=== PATIENT | male | born 1970 | race Caucasian/White ===

== ENCOUNTER 2023-06-03 08:53 | Inpatient (IN) | payer MEDICAID, OTHER ==
[~2023-06-03] VITALS: Ht 175.3 cm; Wt 135.8 kg
[2023-06-03] VITALS (24 sets, daily range): BP systolic 82–111; BP diastolic 45–59; PULSE 94–149; RESP 22–57; TEMP 98.7–101; O2SAT 93
[2023-06-03] MEDS ORDERED: NALOXONE HCL 1 MG/ML 2ML VIAL IV ONE (09:15)
[2023-06-03] MEDS ORDERED: SUCCINYLCHOLINE CHLORIDE 200MG/10ML IV ONE (09:30)
[2023-06-03] MEDS ORDERED: PROPOFOL 10MG/ML 100ML 100 ML IV ONE (09:30)
[2023-06-03] MEDS ORDERED: ETOMIDATE 2MG/ML 10ML VIAL IV ONE (09:30)
[2023-06-03] MEDS ORDERED: IOHEXOL-350 100 ML BOTTLE ONE (09:35)
[2023-06-03 09:57] LABS: HEMATOCRIT. 46.3 % (42.0-52.0); HEMOGLOBIN. 15.4 g/dL (14.0-18.0); MEAN CORPUSCULAR HEMOGLOBIN 30.2 pg (28.0-32.0); MEAN CORPUSCULAR HGB CONC 33.3 g/dL (31.0-37.0); MEAN CORPUSCULAR VOLUME 90.5 fL (80.0-94.0); MEAN PLATELET VOLUME 8.8 fl (7.4-10.4); PLATELET 122 x1000/uL (130-400); RED BLOOD CELL COUNT 5.11 mill/uL (4.7-6.1); RED CELL DISTRIBUTION WIDTH 15.6 % (11.6-14.6)
[2023-06-03 10:07] LABS: DIFFERENTIAL COMMENT 1
[2023-06-03 10:21] LABS: BG BASE EXCESS -5.3 mmol/L (-2.0-2.0); BG CARBOXYHEMOGLOBIN 1.2 % (0.5-1.5); BG DEOXYHEMOGLOBIN 0.8 % (0.0-5.0); BG FRACTION INSPIRED OXYGEN 100; BG HCO3 ACT 18.4 mmol/L (22.0-26.0); BG METHEMOGLOBIN 0.5 % (0.0-1.5); BG OXYGEN SATURATION 99.2 % (92.0-98.5); BG OXYHEMOGLOBIN 97.5 % (94.0-97.0); BG PCO2 31.5 mmHg (35.0-45.0); BG PH 7.385 (7.350-7.450); BG PO2 147.6 mmHg (75.0-100.0); BG SAMPLE SITE RIGHT BRACHIAL; BG TOTAL HEMOGLOBIN 16.1 g/dL (12.0-18.0); BG TOTAL RESPIRATORY RATE 41 b/min; BG VENT MODE VENT - AC
[2023-06-03 10:46] LABS: CHLORIDE 94 mEq/L (98-107); INDEX HEMOLYSI 3 (1-3); INDEX ICTERIC 4 (1-4); INDEX LIPEMIC 1 (1-3); POTASSIUM 4.1 mEq/L (3.5-5.1); SODIUM 134 mEq/L (136-145)
[2023-06-03 10:58] LABS: ALANINE AMINOTRANSFERASE 258 IU/L (13-61); ALBUMIN 3.3 g/dL (3.4-5.0); ASPARTATE AMINOTRANSFERASE 806 IU/L (15-37); BILIRUBIN TOTAL 15.8 mg/dL (0.1-1.0); CALCIUM 8.9 mg/dL (8.5-10.1); CARBON DIOXIDE 20 mEq/L (21-32); ETHANOL BLOOD < 10 mg/dL (<10); GLUCOSE 107 mg/dL (70-105); PROTEIN TOTAL 7.8 g/dL (6.0-8.3); UREA NITROGEN BLOOD 12 mg/dL (7-21)
[2023-06-03 11:00] LABS: CLARITY URINE TURBID (CLEAR); COLOR URINE DARK YELLOW (YELLOW); GLUCOSE URINE NEGATIVE (NEGATIVE); KETONES URINE NEGATIVE (NEGATIVE); LEUKOCYTE ESTERASE URINE 1+ (NEGATIVE); NITRITE URINE POSITIVE (NEGATIVE); OCCULT BLOOD URINE 2+ (NEGATIVE); PH URINE 5.5 (4.5-8.0); PROTEIN URINE 2+ (NEGATIVE); SPECIFIC GRAVITY URINE 1.037 (1.005-1.030)
[2023-06-03 11:09] LABS: INR 2.1; PROTHROMBIN TIME 21.4 sec (9.6-11.0)
[2023-06-03] MEDS ORDERED: LIDOCAINE HCL 1% 10 MG/ML 10ML VIAL ONE (11:09)
[2023-06-03 11:18] LABS: TROPONIN I HIGH SENSITIVITY 592 ng/L (<78)
[2023-06-03 11:29] LABS: BACTERIA URINE 1+; RBC URINE NONE SEEN /hpf (0-2); SQUAMOUS EPITHELIAL CELL URINE FEW /lpf (RARE/1+); YEAST URINE NONE SEEN
[2023-06-03 11:30] LABS: HYALINE CASTS URINE 0-5 /lpf
[2023-06-03 11:57] LABS: PLATELET ESTIMATE SLIGHTLY DECREASED
[2023-06-03] MEDS ORDERED: PIPERACILLIN/TAZ 3.375G PREMIX 50 ML IV ONE (12:15)
[2023-06-03] MEDS ORDERED: VANCOMYCIN 1G PREMIX 200 ML IV ONE (12:15)
[2023-06-03] MEDS ORDERED: SODIUM CHLORIDE 0.9% 1000ML BAG (SEPSIS BOLUS) IV ONE (12:15)
[2023-06-03] MEDS ORDERED: PIPERACILLIN/TAZ 3.375G PREMIX 50 ML IV NR (12:45)
[2023-06-03] MEDS ORDERED: MAGNESIUM/ALUMINUM HYDROXIDE/SIMETHICONE 30ML UDC PO PRN (12:45)
[2023-06-03] MEDS ORDERED: DOCUSATE SODIUM 100MG CAPSULE PO PRN (12:45)
[2023-06-03] MEDS ORDERED: ONDANSETRON HCL 4MG/2ML INJ IV PRN (12:45)
[2023-06-03] MEDS ORDERED: ACETAMINOPHEN 325MG TABLET PO PRN ×2 (12:45)
[2023-06-03] MEDS ORDERED: IPRATROPIUM/ALBUTEROL 0.5-3(2.5)MG/3ML NEB NEB PRN (12:45)
[2023-06-03] MEDS ORDERED: CLONIDINE 0.1MG TABLET PO PRN (12:45)
[2023-06-03] MEDS ORDERED: DEXT 5%/LACTATED RINGERS 1,000 ML IV SCH (12:45)
[2023-06-03] MEDS ORDERED: NITROGLYCERIN 0.4MG TABLET SL SL PRN (12:45)
[2023-06-03] MEDS ORDERED: NOREPINEPHRINE 8 MG in DEXT 5% WATER 242 ML IV PRN (12:45)
[2023-06-03] MEDS ORDERED: GUAIFENESIN 200MG/10ML SUGAR FREE UDC PO PRN (12:45)
[2023-06-03 13:10] LABS: *AMPHETAMINES SCREEN URINE NEGATIVE (NEGATIVE); *BARBITURATES SCREEN URINE NEGATIVE (NEGATIVE); *BENZODIAZEPINES SCREEN URINE NEGATIVE (NEGATIVE); *COCAINE SCREEN URINE NEGATIVE (NEGATIVE); CANNABINOID URINE SCREEN NEGATIVE (NEGATIVE); ECSTASY MDMA SCREEN URINE NEGATIVE (NEGATIVE); OPIATES URINE SCREEN NEGATIVE (NEGATIVE); PHENCYCLIDINE URINE SCREEN NEGATIVE (NEGATIVE)
[2023-06-03] MEDS ORDERED: VANCOMYCIN 2,000 MG in DEXT 5% WATER 500 ML IV NR (14:00)
[2023-06-03] MEDS ORDERED: LACTULOSE 20G/30ML UDC PO SCH (16:00)
[2023-06-03] MEDS: PROPOFOL 10MG/ML 100ML 100 ML IV PRN ×2 (16:01→17:07)
[2023-06-03] MEDS: LORAZEPAM 2MG/ML CPJ IV PRN ×2 (17:23→23:35)
[2023-06-03] MEDS: FENTANYL CITRATE/PF 2,500 MCG in SODIUM CHLORIDE 0.9% 200 ML IV PRN (17:43)
[2023-06-03 18:10] LABS: T4 FREE 0.85 ng/dL (0.76-1.46); THYROID STIMULATING HORMONE 1.1 uIU/mL (0.36-3.74)
[2023-06-03 19:01] LABS: VITAMIN B12 SERUM >2000 pg/mL pg/mL (211-911)
[2023-06-03] MEDS: IPRATROPIUM/ALBUTEROL 0.5-3(2.5)MG/3ML NEB HHN SCH (20:27)
[2023-06-03] MEDS ORDERED: FOLIC ACID 1 MG, THIAMINE HCL 100 MG, MVI, ADULT NO.1 10 ML in DEXTROSE 5% WATER 1,000 ML IV ONE ×4 (21:00)
[2023-06-03] MEDS: LACTULOSE 20G/30ML UDC PO SCH (21:30)
[2023-06-03] MEDS: PIPERACILLIN/TAZOBACTAM 3.375G in DEXT 5% WATER 50ML IV SCH (21:40)
[2023-06-03 23:48] LABS: INDEX HEMOLYSI 3 (1-3)
[2023-06-03 23:53] LABS: AMMONIA 163 uMol/L (<32)
[2023-06-04] VITALS (61 sets, daily range): BP systolic 66–136; BP diastolic 27–82; PULSE 98–126; RESP 20–39; TEMP 98.2–101.9
[2023-06-04] MEDS: IPRATROPIUM/ALBUTEROL 0.5-3(2.5)MG/3ML NEB HHN SCH ×6 (00:05→20:41)
[2023-06-04 00:06] LABS: CREATINE KINASE 3208 IU/L (39-308)
[2023-06-04 00:55] LABS: BG BASE EXCESS -7.2 mmol/L (-2.0-2.0); BG CARBOXYHEMOGLOBIN 0.5 % (0.5-1.5); BG DEOXYHEMOGLOBIN 15.7 % (0.0-5.0); BG FRACTION INSPIRED OXYGEN 70; BG HCO3 ACT 18.4 mmol/L (22.0-26.0); BG METHEMOGLOBIN 0.3 % (0.0-1.5); BG OXYGEN SATURATION 84.2 % (92.0-98.5); BG OXYHEMOGLOBIN 83.5 % (94.0-97.0); BG PH 7.304 (7.350-7.450); BG PO2 58.4 mmHg (75.0-100.0); BG SAMPLE SITE RIGHT BRACHIAL; BG TOTAL HEMOGLOBIN 14.4 g/dL (12.0-18.0); BG VENT MODE VENT - AC
[2023-06-04 01:20] LABS: CREATINE KINASE MB FRACTION 45.8 ng/mL (0.5-3.6)
[2023-06-04] MEDS ORDERED: SODIUM BICARBONATE 8.4% 1 MEQ/ML 50ML SYR IV NR (01:45)
[2023-06-04] MEDS: NOREPINEPHRINE 8MG/250ML PMX 250 ML IV PRN ×2 (04:36→14:43)
[2023-06-04 05:58] LABS: BASOPHILS % 0.2 % (0.0-2.0); EOSINOPHILS % 0.3 % (0.0-5.0); HEMATOCRIT. 43.6 % (42.0-52.0); LYMPHOCYTES % 7.3 % (20.0-50.0); MEAN CORPUSCULAR HEMOGLOBIN 30.2 pg (28.0-32.0); MEAN CORPUSCULAR HGB CONC 32.1 g/dL (31.0-37.0); MEAN PLATELET VOLUME 9.6 fl (7.4-10.4); MONOCYTES % 7.8 % (2.0-8.0); NEUTROPHILS % 84.4 % (40.0-76.0); PLATELET 112 x1000/uL (130-400); RED BLOOD CELL COUNT 4.64 mill/uL (4.7-6.1); RED CELL DISTRIBUTION WIDTH 17.6 % (11.6-14.6); WHITE BLOOD COUNT 12.4 x1000/uL (4.5-11.0)
[2023-06-04 05:59] LABS: CHLORIDE 100 mEq/L (98-107); INDEX HEMOLYSI 4 (1-3); INDEX ICTERIC 4 (1-4); INDEX LIPEMIC 1 (1-3); SODIUM 137 mEq/L (136-145)
[2023-06-04] MEDS ORDERED: VANCOMYCIN 1.25GM PMX (XELLIA) 250 ML IV SCH (06:00)
[2023-06-04] MEDS: LACTULOSE 20G/30ML UDC PO SCH ×2 (06:14→18:51)
[2023-06-04] MEDS: PIPERACILLIN/TAZOBACTAM 3.375G in DEXT 5% WATER 50ML IV SCH ×3 (06:15→22:54)
[2023-06-04 06:28] LABS: ALANINE AMINOTRANSFERASE 1437 IU/L (13-61); ALBUMIN 2.7 g/dL (3.4-5.0); BILIRUBIN TOTAL 14.4 mg/dL (0.1-1.0); CALCIUM 8.3 mg/dL (8.5-10.1); CARBON DIOXIDE 18 mEq/L (21-32); CREATINE KINASE MB FRACTION 54.5 ng/mL (0.5-3.6); CREATININE 2.6 mg/dL (0.6-1.3); PHOSPHORUS 5.2 mg/dL (2.5-4.9); PROTEIN TOTAL 6.6 g/dL (6.0-8.3); UREA NITROGEN BLOOD 19 mg/dL (7-21)
[2023-06-04 06:53] LABS: GLUCOSE 32 mg/dL (70-105)
[2023-06-04 06:54] LABS: ASPARTATE AMINOTRANSFERASE 6773 IU/L (15-37); POTASSIUM 4.5 mEq/L (3.5-5.1)
[2023-06-04] MEDS ORDERED: DEXTROSE 50% WATER 50ML SYRINGE IV ONE (07:00)
[2023-06-04] MEDS: DEXTROSE 50% WATER 50ML SYRINGE IV PRN ×3 (07:16→22:06)
[2023-06-04 08:24] LABS: BG BASE EXCESS -9.3 mmol/L (-2.0-2.0); BG DEOXYHEMOGLOBIN 3.2 % (0.0-5.0); BG HCO3 ACT 17.6 mmol/L (22.0-26.0); BG METHEMOGLOBIN 0.4 % (0.0-1.5); BG OXYGEN SATURATION 96.8 % (92.0-98.5); BG OXYHEMOGLOBIN 95.4 % (94.0-97.0); BG PCO2 41.9 mmHg (35.0-45.0); BG PH 7.242 (7.350-7.450); BG PO2 97.5 mmHg (75.0-100.0); BG SAMPLE SITE RIGHT BRACHIAL; BG TOTAL HEMOGLOBIN 15.4 g/dL (12.0-18.0); BG VENT MODE VENT - AC
[2023-06-04] MEDS: PANTOPRAZOLE SODIUM 40 MG/VIAL IV SCH (09:00)
[2023-06-04] MEDS: BLOOD SUGAR DIAGNOSTIC STRIP TEST SCH ×3 (12:16→21:51)
[2023-06-04 12:25] LABS: INDEX HEMOLYSI 2 (1-3)
[2023-06-04 12:40] LABS: AMMONIA 135 uMol/L (<32)
[2023-06-04 12:41] LABS: CREATINE KINASE MB FRACTION 61.5 ng/mL (0.5-3.6)
[2023-06-04] MEDS ORDERED: NOREPINEPHRINE 8MG/250ML PMX 250 ML IV PRN (14:45)
[2023-06-04] MEDS ORDERED: SODIUM BICARBONATE 100 MEQ in SODIUM CHLORIDE 0.45% 1,000 ML IV SCH (16:00)
[2023-06-04] MEDS: PHENYLEPHRINE 50 MG in DEXT 5% WATER 245 ML IV PRN ×2 (19:15→21:14)
[2023-06-04] MEDS: VASOPRESSIN 20 UNIT in SODIUM CHLORIDE 0.9% 99 ML IV PRN (19:35)
[2023-06-04] MEDS: PHENYLEPHRINE 100 MG in DEXT 5% WATER 240 ML IV PRN (23:23)
[2023-06-04] MEDS ORDERED: SODIUM BICARBONATE 100 MEQ in DEXT 5%/0.45% NACL 1000ML 1,000 ML IV SCH (23:29)
[2023-06-05] VITALS (93 sets, daily range): BP systolic 74–134; BP diastolic 23–102; PULSE 102–126; RESP 19–42; TEMP 98.4–100
[2023-06-05] MEDS: IPRATROPIUM/ALBUTEROL 0.5-3(2.5)MG/3ML NEB HHN SCH ×5 (00:21→16:19)
[2023-06-05] MEDS: LACTULOSE 20G/30ML UDC PO SCH ×5 (00:30→23:49)
[2023-06-05] MEDS: BLOOD SUGAR DIAGNOSTIC STRIP TEST SCH ×7 (00:38→23:48)
[2023-06-05] MEDS: PHENYLEPHRINE 100 MG in DEXT 5% WATER 240 ML IV PRN ×5 (04:19→22:10)
[2023-06-05 04:35] LABS: HEMATOCRIT. 41.5 % (42.0-52.0); HEMOGLOBIN. 13.5 g/dL (14.0-18.0); MEAN CORPUSCULAR HEMOGLOBIN 30.2 pg (28.0-32.0); MEAN CORPUSCULAR HGB CONC 32.5 g/dL (31.0-37.0); MEAN PLATELET VOLUME 9.3 fl (7.4-10.4); PLATELET 81 x1000/uL (130-400); RED BLOOD CELL COUNT 4.46 mill/uL (4.7-6.1); RED CELL DISTRIBUTION WIDTH 17.5 % (11.6-14.6); WHITE BLOOD COUNT 11.4 x1000/uL (4.5-11.0)
[2023-06-05 04:42] LABS: DIFFERENTIAL COMMENT 1
[2023-06-05 04:43] LABS: CALCIUM 7.5 mg/dL (8.5-10.1)
[2023-06-05] MEDS: VASOPRESSIN 20 UNIT in SODIUM CHLORIDE 0.9% 99 ML IV PRN ×2 (04:48→17:27)
[2023-06-05] MEDS: PIPERACILLIN/TAZOBACTAM 3.375G in DEXT 5% WATER 50ML IV SCH (05:03)
[2023-06-05 05:06] LABS: CREATININE 5.3 mg/dL (0.6-1.3)
[2023-06-05 05:25] LABS: POTASSIUM 2.8 mEq/L (3.5-5.1)
[2023-06-05] MEDS: KCL 20MEQ/100ML PREMIX 100 ML IV SCH ×2 (06:38→08:21)
[2023-06-05] MEDS ORDERED: ENOXAPARIN 40MG/0.4ML SYR SUBCUT SCH (09:00)
[2023-06-05] MEDS: PANTOPRAZOLE SODIUM 40 MG/VIAL IV SCH (09:12)
[2023-06-05 09:15] LABS: BG BASE EXCESS -5.7 mmol/L (-2.0-2.0); BG CARBOXYHEMOGLOBIN 0.5 % (0.5-1.5); BG DEOXYHEMOGLOBIN 4.6 % (0.0-5.0); BG FRACTION INSPIRED OXYGEN 100; BG HCO3 ACT 19.2 mmol/L (22.0-26.0); BG METHEMOGLOBIN 0.3 % (0.0-1.5); BG OXYGEN SATURATION 95.4 % (92.0-98.5); BG OXYHEMOGLOBIN 94.6 % (94.0-97.0); BG PCO2 35.8 mmHg (35.0-45.0); BG PH 7.347 (7.350-7.450); BG PO2 79.8 mmHg (75.0-100.0); BG SAMPLE SITE RIGHT RADIAL; BG VENT MODE VENT - AC
[2023-06-05] MEDS ORDERED: LIDOCAINE HCL 1% 10 MG/ML 10ML VIAL ONE (10:07)
[2023-06-05] MEDS ORDERED: HEPARIN 100 UNITS/1 ML VIAL IVF PRN (11:15)
[2023-06-05] MEDS: NOREPINEPHRINE 32 MG in DEXT 5% WATER 218 ML IV PRN (12:37)
[2023-06-05 13:19] LABS: ALBUMIN 2.3 g/dL (3.4-5.0); BILIRUBIN DIRECT 8.4 mg/dL (0.0-0.2); BILIRUBIN TOTAL 13.9 mg/dL (0.1-1.0); PROTEIN TOTAL 5.7 g/dL (6.0-8.3)
[2023-06-05 14:03] LABS: HEPATITIS B SURFACE ANTIGEN NEGATIVE
[2023-06-05 14:08] LABS: LACTIC ACID 7.6 mmol/L (0.4-2.0)
[2023-06-05 14:28] LABS: HEPATITIS C VIR.AB 0.09 INDEXVAL (0.00-0.80)
[2023-06-05 14:29] LABS: HEPATITIS B CORE AB IGM NEGATIVE
[2023-06-05 14:30] LABS: HEPATITIS A AB IGM NEGATIVE (NEGATIVE)
[2023-06-05 15:30] LABS: PLATELET ESTIMATE DECREASED
[2023-06-05 15:34] LABS: INDEX HEMOLYSI 4 (1-3)
[2023-06-05 16:04] LABS: INR 7.4; PROTHROMBIN TIME 70.4 sec (9.6-11.0)
[2023-06-05 16:14] LABS: CREATINE KINASE 6310 IU/L (39-308)
[2023-06-05] MEDS ORDERED: PHYTONADIONE 10 MG in DEXTROSE 5% WATER 49 ML IV NR (17:30)
[2023-06-05] MEDS ORDERED: LORAZEPAM 2MG/ML CPJ IV PRN (18:45)
[2023-06-05 18:58] LABS: INDEX HEMOLYSI 3 (1-3)
[2023-06-05 19:07] LABS: AMMONIA 163 uMol/L (<32)
[2023-06-05 19:15] LABS: TROPONIN I HIGH SENSITIVITY 4214 ng/L (<78)
[2023-06-05] MEDS: DEXTROSE 50% WATER 50ML SYRINGE IV PRN ×2 (20:31→23:49)
[2023-06-05] MEDS ORDERED: PIPERACILLIN/TAZOBACTAM 3.375G in DEXT 5% WATER 50ML IV SCH (21:00)
[2023-06-05] MEDS: FENTANYL CITRATE/PF 2,500 MCG in SODIUM CHLORIDE 0.9% 200 ML IV PRN (22:09)
[2023-06-06] VITALS (10 sets, daily range): BP systolic 62–155; BP diastolic 43–80; PULSE 0–143; RESP 23–30
[2023-06-06] MEDS: IPRATROPIUM/ALBUTEROL 0.5-3(2.5)MG/3ML NEB HHN SCH (00:50)
[2023-06-06 01:01] LABS: TROPONIN I HIGH SENSITIVITY 4668 ng/L (<78)
[2023-06-06] MEDS: NOREPINEPHRINE 32 MG in DEXT 5% WATER 218 ML IV PRN (01:07)
[2023-06-06 01:20] LABS: BG CARBOXYHEMOGLOBIN 0.5 % (0.5-1.5); BG DEOXYHEMOGLOBIN 15.5 % (0.0-5.0); BG HCO3 ACT 16.5 mmol/L (22.0-26.0); BG METHEMOGLOBIN 0.1 % (0.0-1.5); BG OXYGEN SATURATION 84.4 % (92.0-98.5); BG OXYHEMOGLOBIN 83.9 % (94.0-97.0); BG PCO2 34.7 mmHg (35.0-45.0); BG PH 7.295 (7.350-7.450); BG PO2 54.5 mmHg (75.0-100.0); BG TOTAL HEMOGLOBIN 13.9 g/dL (12.0-18.0)
[2023-06-06] MEDS: BLOOD SUGAR DIAGNOSTIC STRIP TEST SCH (04:00)
[2023-06-06 05:06] LABS: HEMOGLOBIN. 12.4 g/dL (14.0-18.0); MEAN CORPUSCULAR HEMOGLOBIN 31.2 pg (28.0-32.0); MEAN CORPUSCULAR HGB CONC 32.5 g/dL (31.0-37.0); MEAN PLATELET VOLUME 9.4 fl (7.4-10.4); PLATELET 62 x1000/uL (130-400); RED BLOOD CELL COUNT 3.96 mill/uL (4.7-6.1)
[2023-06-06 05:15] LABS: CHLORIDE 99 mEq/L (98-107); INDEX HEMOLYSI 2 (1-3); INDEX ICTERIC 3 (1-4); INDEX LIPEMIC 1 (1-3); POTASSIUM 4.6 mEq/L (3.5-5.1); SODIUM 133 mEq/L (136-145)
[2023-06-06] MEDS: LACTULOSE 20G/30ML UDC PO SCH (05:23)
[2023-06-06 05:37] LABS: ALANINE AMINOTRANSFERASE 1355 IU/L (13-61); ALBUMIN 1.7 g/dL (3.4-5.0); BILIRUBIN TOTAL 10.8 mg/dL (0.1-1.0); CALCIUM 7.2 mg/dL (8.5-10.1); CARBON DIOXIDE 18 mEq/L (21-32); GLUCOSE 108 mg/dL (70-105); PHOSPHORUS 3.7 mg/dL (2.5-4.9); PROTEIN TOTAL 4.5 g/dL (6.0-8.3); UREA NITROGEN BLOOD 28 mg/dL (7-21)
[2023-06-06 06:01] LABS: ASPARTATE AMINOTRANSFERASE 5234 IU/L (15-37)
[2023-06-06 06:02] LABS: CREATININE 7.2 mg/dL (0.6-1.3)
[2023-06-06 06:03] LABS: TROPONIN I HIGH SENSITIVITY 5570 ng/L (<78)
[2023-06-06 06:13] LABS: DIFFERENTIAL COMMENT 1
[2023-06-06 11:51] LABS: NUCLEATED RED BLOOD CELLS 5 /100 WBC
[2023-06-06 11:52] LABS: ANISOCYTOSIS 1+; PLATELET ESTIMATE DECREASED
== END 2023-06-06 09:00 | DRG 871 ==
LOC: ER 08:53 → MICUNO 12:12 → EDBEDREQTM 12:28 → EDBEDREQ 12:28 → MICUNO 14:45 → MICUSO 06-04 19:33
PROVIDERS: ADMIT Internal Medicine; ATTEND Internal Medicine
PROC: 0BH17EZ Insertion of Endotracheal Airway into Trachea, Via Natural or Artificial Opening (ICD-10-PCS; principal; 2023-06-03)
PROC: 5A1945Z Respiratory Ventilation, 24-96 Consecutive Hours (ICD-10-PCS; 2023-06-03)
PROC: 05H533Z Insertion of Infusion Device into Right Subclavian Vein, Percutaneous Approach (ICD-10-PCS; 2023-06-03)
PROC: B546ZZA Ultrasonography of Right Subclavian Vein, Guidance (ICD-10-PCS; 2023-06-03)
PROC: 5A1D70Z Performance of Urinary Filtration, Intermittent, Less than 6 Hours Per Day (ICD-10-PCS; 2023-06-05)
PROC: 02HV33Z Insertion of Infusion Device into Superior Vena Cava, Percutaneous Approach (ICD-10-PCS; 2023-06-05)
PROC: B548ZZA Ultrasonography of Superior Vena Cava, Guidance (ICD-10-PCS; 2023-06-05)
DX: A41.9 Sepsis, unspecified organism (principal); G92.8 Other toxic encephalopathy; R65.21 Severe sepsis with septic shock; J69.0 Pneumonitis due to inhalation of food and vomit; J96.01 Acute respiratory failure with hypoxia; N17.0 Acute kidney failure with tubular necrosis; I21.4 Non-ST elevation (NSTEMI) myocardial infarction; D68.9 Coagulation defect, unspecified; E44.0 Moderate protein-calorie malnutrition; E87.1 Hypo-osmolality and hyponatremia; E87.20 Acidosis, unspecified; K76.6 Portal hypertension; M62.82 Rhabdomyolysis; N39.0 Urinary tract infection, site not specified; Z68.41 Body mass index [BMI] 40.0-44.9, adult; K70.31 Alcoholic cirrhosis of liver with ascites; J45.909 Unspecified asthma, uncomplicated; I46.9 Cardiac arrest, cause unspecified; E11.649 Type 2 diabetes mellitus with hypoglycemia without coma; D69.6 Thrombocytopenia, unspecified; F10.20 Alcohol dependence, uncomplicated; E88.09 Other disorders of plasma-protein metabolism, not elsewhere classified; E87.6 Hypokalemia; K70.40 Alcoholic hepatic failure without coma; Z82.49 Family history of ischemic heart disease and other diseases of the circulatory system
CPT/HCPCS: 31500; 36415; 36556; 36573; 36600; 70496; 70498; 71045; 76700; 76937; 80048; 80053; 80061; 80076; 80202; 80305; 80320; 81003; 82140; 82375; 82550; 82553; 82607; 82746; 82805; 82962; 83036; 83540; 83550; 83605; 83735; 84100; 84439; 84443; 84484; 85025; 86705; 86709; 86803; 87070; 87077; 87340; 90935; 93005; 93306; 93970; 94002; 94003; 94640; 99291; A6261; C1725; C1752; C9113; J1650; J2060; J2310; J2370; J2543; J2704; J3010; J3370; J3411; J3430; J3480; J3490; J7030; J7050; J7060; J7070; Q9967; G0480